=== PATIENT | female | born 2000 | race African-American/Black ===

== ENCOUNTER 2021-06-29 15:37 | Inpatient (IN) | payer MEDICAID, OTHER ==
[2021-06-29 17:04] LABS: Amphetamine Screen,Urine Not Detected (NotDetected); Barbiturate Screen,Urine Not Detected (NotDetected); Benzodiazepines Screen,Urine Not Detected (NotDetected); Cocaine Screen,Urine Not Detected (NotDetected); Methadone Screen, Urine Not Detected (NotDetected); Opiate Screen,Urine Not Detected (NotDetected); Oxycodone Screen, Urine Not Detected (NotDetected); Phencyclidine Screen,Urine Not Detected (NotDetected); Tricyclic Antidepressant,Urine Not Detected (NotDetected); Urn Cannabinoid Scrn Detected (NotDetected)
--- NOTE | 2021-06-29 17:31 | ED ---
General Adult HPI - General Chief complaint: Psychiatric Symptoms Stated complaint: Mental health Time Seen by Provider: 06/29/21 16:18 Source: patient Mode of arrival: ambulatory Limitations: no limitations - History of Present Illness Initial comments: This 20-year-old female with a past medical history of anxiety and depression presents emergency Department with increased depression over the last couple weeks. Patient states she has a lot of increased stress at home and states it has been increasing her anxiety and depression. Patient states she had suicidal thoughts the states she has no plan at this time. Patient states she did try to commit suicide 2 months ago by taking pills but states she doesn't think she would actually be able to follow-through with the plan. Patient states she was admitted to psychiatric hospital when she was 8 years old but has not been admitted to an inpatient Center since. Patient states she does not have a psychiatrist and states she would like to be able to get information on how to see a psychiatrist and therapist outpatient. Mother in room states she feels comfortable taking patient home and states she would like patient to be seen as an outpatient by a psychiatrist. Patient recently switched from seeing her net front end developer and now sees Dr. Redding. Patient states she is currently taking Citalopram which she has been on for years. Patient states she was diagnosed with anxiety and depression as a child. Patient denies any chest pain, shortness of breath, abdominal pain, nausea, vomiting, headache, lightheadedness, dizziness, change in bowel or bladder, change in appetite or any medical issues besides feeling increased sadness and depression over the last couple of weeks. Patient states she does smoke marijuana daily but denies using any other drugs. Patient denies drinking alcohol at this time. She states she did used to drink alcohol a few times a week couple months ago, however she stopped doing that. Patient denies any auditory or visual hallucinations. - Related Data Home Medications Medication Instructions Recorded Confirmed Aviane 0.1-20 Mg-Mcg Tab 1 tab PO DAILY 06/29/21 06/29/21 Citalopram Hydrobromide [CeleXA] 40 mg PO DAILY 06/29/21 06/29/21 Glycopyrrolate 4 mg PO DAILY 06/29/21 06/29/21 Allergies Allergy/AdvReac Type Severity Reaction Status Date / Time No Known Allergies Allergy Verified 06/29/21 17:16 Review of Systems ROS Statement: Those systems with pertinent positive or pertinent negative responses have been documented in the HPI. ROS Other: All systems not noted in ROS Statement are negative. Past Medical History Past Medical History: No Reported History History of Any Multi-Drug Resistant Organisms: None Reported Past Surgical History: Back Surgery Past Psychological History: No Psychological Hx Reported Smoking Status: Never smoker Past Alcohol Use History: None Reported Past Drug Use History: Marijuana General Exam Limitations: no limitations General appearance: alert, in no apparent distress Head exam: Present: atraumatic, normocephalic, normal inspection Eye exam: Present: normal appearance, PERRL, EOMI. Absent: scleral icterus, conjunctival injection, periorbital swelling ENT exam: Present: normal exam, mucous membranes moist Neck exam: Present: normal inspection, full ROM. Absent: tenderness, meningismus, lymphadenopathy Respiratory exam: Present: normal lung sounds bilaterally. Absent: respiratory distress, wheezes, rales, rhonchi, stridor, chest wall tenderness Cardiovascular Exam: Present: regular rate, normal rhythm, normal heart sounds. Absent: systolic murmur, diastolic murmur, rubs, gallop, clicks GI/Abdominal exam: Present: soft, normal bowel sounds. Absent: distended, tenderness, guarding, rebound, rigid Extremities exam: Present: normal inspection, full ROM, normal capillary refill. Absent: tenderness, pedal edema, joint swelling, calf tenderness Back exam: Present: normal inspection, full ROM. Absent: CVA tenderness (R), CVA tenderness (L), paraspinal tenderness, vertebral tenderness Neurological exam: Present: alert, oriented X3, CN II-XII intact, normal gait Psychiatric exam: Present: normal affect, normal mood Skin exam: Present: warm, dry, intact, normal color. Absent: rash Course Vital Signs 06/29/21 15:42 Temperature 98 F Pulse Rate 90 Respiratory 16 Rate Blood Pressure 105/65 O2 Sat by Pulse 97 Oximetry Medical Decision Making - Medical Decision Making This 20-year-old male presents emergency Department with increased depression and suicidal ideation 2 months, worsening over the last couple of days. EPS it assessed patient and did advise patient to be admitted for further psychiatric workup, evaluation and treatment. Patient verbally agreed to be admitted for further psychiatric evaluation, workup and treatment. Labs with urine hCG not detected, toxicology with urine detected. COVID-19 negative. Patient admitted to psychiatric unit. - Lab Data Lab Results 06/29/21 06/29/21 06/29/21 Range/Units 16:35 16:35 19:33 Urine HCG, Qual Not Detected (Not Detectd) Urine Opiates Screen Not Detected (NotDetected) Ur Oxycodone Screen Not Detected (NotDetected) Urine Methadone Screen Not Detected (NotDetected) Ur Propoxyphene Screen Not Detected (NotDetected) Ur Barbiturates Screen Not Detected (NotDetected) U Tricyclic Antidepress Not Detected (NotDetected) Ur Phencyclidine Scrn Not Detected (NotDetected) Ur Amphetamines Screen Not Detected (NotDetected) U Methamphetamines Scrn Not Detected (NotDetected) U Benzodiazepines Scrn Not Detected (NotDetected) Urine Cocaine Screen Not Detected (NotDetected) U Marijuana (THC) Screen Detected H (NotDetected) Coronavirus (PCR) Not Detected (Not Detectd) Disposition Clinical Impression: Depression with anxiety, Encounter for psychiatric assessment Disposition: ADMITTED IP TO THIS [facility] Condition: Serious Is patient prescribed a controlled substance at d/c from ED?: No Referrals: Anastasiia Garcia MD [Primary Care Provider] - 1-2 days
[2021-06-29] MEDS ORDERED: ACETAMINOPHEN TAB 325 MG TAB PO PRN (23:09)
[2021-06-29] MEDS ORDERED: MAGNESIUM HYDROXIDE 2,400 MG/10 ML CUP PO PRN (23:09)
[2021-06-29] MEDS ORDERED: MAG HYDROX/AL HYDROX/SIMETH 30 ML CUP PO PRN (23:09)
[2021-06-29] MEDS ORDERED: LORazepam 2 MG/ML INJ IM PRN (23:33)
[2021-06-30] MEDS: LORazepam 1 MG TAB PO PRN ×2 (01:40→08:39)
[2021-06-30 07:08] LABS: Basophils # (A) 0.1 k/uL (0-0.2); Basophils % (A) 1 %; Eosinophils # (A) 0.2 k/uL (0-0.7); Eosinophils % (A) 2 %; HGB 14.1 gm/dL (11.4-16.0); Lymphocytes # (A) 4.5 k/uL (1.0-4.8); Lymphocytes % (A) 42 %; MCHC 31.4 g/dL (31.0-37.0); MCV 92.3 fL (80.0-100.0); Mean Platelet Volume 7.5; Monocytes # (A) 0.5 k/uL (0-1.0); Monocytes % (A) 5 %; Neutrophils # (A) 5.2 k/uL (1.3-7.7); Neutrophils % (A) 49 %; Platelet Count 344 k/uL (150-450); RBC 4.87 m/uL (3.80-5.40); RDW 13.3 % (11.5-15.5); WBC 10.6 k/uL (4.0-11.0)
[2021-06-30 07:17] LABS: ALT 21 U/L (4-34); AST 31 U/L (14-36); African American GFR (CKD) >90 (>60 ml/min/1.73 sqM); Albumin 4.8 g/dL (3.5-5.0); Alkaline Phosphatase 88 U/L (38-126); Anion Gap 11 mmol/L; Blood Urea Nitrogen 10 mg/dL (7-17); Calcium 9.6 mg/dL (8.4-10.2); Carbon Dioxide 28 mmol/L (22-30); Chloride 101 mmol/L (98-107); Glucose 93 mg/dL (74-99); Non-African American GFR(CKD) >90 (>60 ml/min/1.73 sqM); Potassium 4.5 mmol/L (3.5-5.1); Sodium 140 mmol/L (137-145); Total Bilirubin 0.8 mg/dL (0.2-1.3); Total Protein 8.3 g/dL (6.3-8.2)
[2021-06-30] MEDS: CITALOPRAM HYDROBROMIDE 20 MG TAB PO SCH (08:39)
[2021-06-30] MEDS: GLYCOPYRROLATE 1 MG TAB PO SCH (08:41)
[2021-06-30] MEDS ORDERED: ARIPiprazole 5 MG TAB PO STA (10:24)
[2021-06-30 10:27] LABS: Chol/HDL Ratio 4.48 Ratio; LDL Cholesterol,Calculated 159.8 mg/dL (0.0-131.0)
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
--- NOTE | 2021-06-30 15:52 | P.CON ---
Consult Note - . Consult date: 06/30/21 Assessment/Plan:: This is a 20 year old female who presents to the emergency room reporting increased depression and sadness over the last couple. She describes this as a mental breakdown. Patient does have a history of attempted suicide attempt about 1 month ago and reports taking "some pills" but was not enough, she states she did not seek medical attention for this incident. She is currently denying suicidal or homicidal ideations. She is having some increased anxiety about this inpatient stay but states the ativan is helping. Patient has a past medical history of anxiety depression, reports that she was admitted to a psychiatric hospital at the age of 8 and has not been inpatient since, also reports elevated heart rate, and states that this is normal for her. Patient currently does not follow with a psychiatrist outpatient. Current medications include citalopram which she has been on for the last 2 years, follows with Dr Garcia in the primary care office newly established. Patient denies chest pain, shortness of breath, nausea, vomiting, diarrhea, headache, denies any dysuria, and reports no pain. She lives with her boyfriend of 2 years and his dad, when asked if she feels safe in the house and with boyfriend, she states, "yes," with no further elaboration. When asked about her family she does say she has a good relationship with her mom and also she has a good relationship with her 4 siblings. She currently works as a cook. She denies current alcohol use, states she occasionally vapes tobacco, also reports to smoking marijuana daily in the form of a joint. Current diagnostics include unremarkable blood count panel, unremarkable chemistry panel with exception of total protein 8.3 which is high. TSH 1.750 Urine hCG negative, urine drug toxicology positive for marijuana, COVID not detected. Patient is currently afebrile, heart rate in the 90s, blood pressure 129/60, 98% on room air. REVIEW OF SYSTEMS: CONSTITUTIONAL: No fever, no malaise, no fatigue. Reports increased depression a nd anxiety. HEENT: No recent visual problems or hearing problems. Denied any sore throat. CARDIOVASCULAR: No chest pain, orthopnea, PND, no palpitations, no syncope. PULMONARY: No shortness of breath, no cough, no hemoptysis. GASTROINTESTINAL: No diarrhea, no nausea, no vomiting, no abdominal pain. NEUROLOGICAL: No headaches, no weakness, no numbness. HEMATOLOGICAL: Denies any bleeding or petechiae. GENITOURINARY: Denies any burning micturition, frequency, or urgency. MUSCULOSKELETAL/RHEUMATOLOGICAL: Denies any joint pain, swelling, or any muscle pain. ENDOCRINE: Denies any polyuria or polydipsia. The rest of the 14-point review of systems is negative. PHYSICAL EXAMINATION: GENERAL: The patient is alert and oriented x3, not in any acute distress. Well developed, well nourished. HEENT: Pupils are round and equally reacting to light. EOMI. No scleral icterus. No conjunctival pallor. Normocephalic, atraumatic. No pharyngeal erythema. No thyromegaly. CARDIOVASCULAR: S1 and S2 present. No murmurs, rubs, or gallops. PULMONARY: Chest is clear to auscultation, no wheezing or crackles. ABDOMEN: Soft, nontender, nondistended, normoactive bowel sounds. No palpable organomegaly. MUSCULOSKELETAL: No joint swelling or deformity. EXTREMITIES: No cyanosis, clubbing, or pedal edema. NEUROLOGICAL: Gross neurological examination did not reveal any focal deficits. SKIN: No rashes. Assessment and plan Assessment Major depressive disorder with suicidal ideation Anxiety Sinus Tachycardia most likely related to anxiety, heart rate between 110-93 on assessment. Hyperlipidemia Daily marijuana use Occasional tobacco use GI prophylaxis Full Code Plan Evaluation and psychiatric medications per primary EKG for evaluation of tachycardia Labs reviewed Recommend diet modification and follow up lipid panel outpatient with primary care Follow up primary care on discharge Thank you kindly for this consultation. The impression and plan of care has been dictated by Katrina Mireles Nurse Practitioner as directed. Dr. Timothy MD I have performed a history and physical examination and medical decision making of this patient, discussed the same with the dictator, and agree with the dictators assessment and plan as written, documented as a scribe. Based on total visit time, I have performed more than 50% of this visit.
[2021-06-30] MEDS ORDERED: ONDANSETRON ODT 4 MG TAB PO PRN (16:12)
[2021-06-30] MEDS: traZODone HCL 50 MG TAB PO PRN (20:42)
[2021-07-01 07:04] VITALS: RESP 16
[2021-07-01] MEDS ORDERED: ARIPiprazole 5 MG TAB PO SCH (09:00)
--- NOTE | 2021-07-01 11:34 | P.PN ---
Progress Note - Text Progress Note Date: 07/01/21 Interval History: Patient was seen wandering the hallways and was directable and agreeable to speak with food writer in the office. Patient reports that she is feeling significantly better. She is currently denying any suicidal or homicidal ideation, intention, and/or plan. She is not reporting any auditory or visual hallucinations. She is denying any paranoia or other delusions. The patient was on trying to identify her thoughts and emotions. She reports that she has been speaking with her mother over the phone and feels better. She has been adherent with her medications and is not reporting any significant side effects at this time. She denies any issues regarding her sleep or appetite. Mental Status Exam: General Appearance: Patient appears to be stated age is alert, directable, and cooperative. Behavior: Patient is calmly seated without any agitated behavior. Eye contact is appropriate. Speech: Patient's speech is fluent and nonpressured. Mood/Affect: Mood is improving mildly, affect is congruent and constricted. Suicidality/Homicidality: Patient denies having any suicidal or homicidal ideation intent or plan. Perceptions: Patient denies any visual hallucinations and denies any auditory hallucinations Though content/process: There is no evidence of any delusional thought content and thought process is linear and goal-directed. Memory and concentration: AOX3, grossly intact for the purposes of this session Judgment and insight: Improving mildly Vital Signs Temp 97.7 F 07/01/21 06:43 Pulse 106 H 07/01/21 06:43 Resp 16 07/01/21 06:43 BP 134/63 07/01/21 06:43 Pulse Ox 98 06/30/21 15:59 Assessment Major depressive disorder Cluster B personality disorder Cannabis use disorder Rule out PTSD Plan: -Patient continues to meet criteria for inpatient psychiatric admission for symptom stabilization and safety. Patient has signed adult voluntary form and medication consent and was placed in patient's chart. -Medications: Continue citalopram 40 mg by mouth daily for depression/PTSD Increase Abilify to 10 mg by mouth daily for mood augmentation/impulsivity -When necessary Ativan for agitation/aggression. -SW on board for discharge planning. Encouraged the patient to participate in milieu.
[2021-07-01] MEDS: GLYCOPYRROLATE 1 MG TAB PO SCH (14:08)
[2021-07-01] MEDS: CITALOPRAM HYDROBROMIDE 20 MG TAB PO SCH (14:09)
[2021-07-01] MEDS: traZODone HCL 50 MG TAB PO PRN (20:36)
[2021-07-02 06:53] VITALS: BP 119/55; PULSE 79; TEMP 97.8
[2021-07-02] MEDS: GLYCOPYRROLATE 1 MG TAB PO SCH (07:06)
[2021-07-02] MEDS: CITALOPRAM HYDROBROMIDE 20 MG TAB PO SCH (07:06)
[2021-07-02] MEDS ORDERED: ARIPiprazole 10 MG TAB PO SCH (09:00)
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
== END 2021-07-02 12:00 | disposition home or self-care (01) | DRG 881 ==
LOC: EC 15:37 → 3MHU 22:38
PROVIDERS: ADMIT Psychiatry & Neurology Psychiatry; ATTEND Psychiatry & Neurology Psychiatry
DX: F32.9 Major depressive disorder, single episode, unspecified (principal); R45.851 Suicidal ideations; E78.5 Hyperlipidemia, unspecified; F12.10 Cannabis abuse, uncomplicated; F41.8 Other specified anxiety disorders; F43.10 Post-traumatic stress disorder, unspecified; F60.89 Other specific personality disorders; F90.9 Attention-deficit hyperactivity disorder, unspecified type; G47.00 Insomnia, unspecified; Z20.822 Contact with and (suspected) exposure to COVID-19; Z79.899 Other long term (current) drug therapy; Z81.1 Family history of alcohol abuse and dependence; Z81.8 Family history of other mental and behavioral disorders; Z91.410 Personal history of adult physical and sexual abuse
CPT/HCPCS: 80053; 80061; 80306; 81025; 82075; 83036; 84443; 85025; 87635; 93005; 99285

== ENCOUNTER → 2023-03-23 | Outpatient (CLI) | payer OTHER ==
--- NOTE | 2023-03-24 10:14 | MR ---
EXAMINATION TYPE: MR ximena/ellyn wo con DATE OF EXAM: 03/23/2023 9:25 PM CLINICAL INDICATION:Female, 22 years old with history of M54.50, M54.6; PHH, Mid and low back pain, e xtreme right leg pain, spasms, numbness and tingling. History of surgery 10+ years ago. COMPARISON: 06/04/2010. TECHNIQUE: Multi planar, multi sequence imaging was performed utilizing: T1-weighted, T2-weighted, a nd turbo inversion recovery imaging of the thoracic and lumbar spine. IV Contrast: cc . None. FINDINGS: Extensive postsurgical changes extending from upper thoracic spine to the L3 vertebrae.. Evaluation i s limited due to susceptibility artifact. Where visualized is no evidence for significant spinal odilon l stenosis within the thoracic spine. The neural foramen are also poorly visualized liver visualized the neural foramen appear patent. The L1-S1 levels of the spine don't show no evidence for significan t stenosis of the spinal canal or neural foramen. No evidence for disc herniation. There is mild disc desiccation. There is postsurgical alignment. Cord signal are visualized within normal limits. No ot her finding within the abdomen or pelvis or thorax. Transitional vertebrae at L5 noted bilaterally. T he right neural foramen where visualized are patent. IMPRESSION: Extensive surgical changes throughout the spine from the upper thoracic to the L3 vertebrae which bar its evaluation. The visualized spinal canal neural foramen appear patent. No abnormal bony signal def initively visualized. The lumbar spine is limits without evidence for significant spinal canal or crystal ral foraminal stenosis.
== END | disposition home or self-care (01) ==
LOC: RADMRIMAIN 20:00
PROVIDERS: ATTEND Orthopaedic Surgery
DX: M54.50 Low back pain, unspecified (principal); M54.6 Pain in thoracic spine
CPT/HCPCS: 72146; 72148

== ENCOUNTER → 2024-07-19 | Outpatient (CLI) | payer OTHER ==
--- NOTE | 2024-07-19 17:11 | US ---
EXAMINATION TYPE: US pelvic complete DATE OF EXAM: 07/19/2024 COMPARISON: NONE CLINICAL INDICATION: Female, 24 years old with history of N91.2 AMENORRHEA; checking for symptoms of PCOS TECHNIQUE: Transabdominal (TA). Transabdominal grayscale sonographic images of the pelvis were acquired. Transvaginal sonographic im ages were medically necessary to better assess the following anatomy: Doppler imaging: Color Doppler Images were obtained. FINDINGS: Date of LMP: pt is unsure of exact date of last period, pt thinks possibly approx 2 months ago EXAM MEASUREMENTS: Uterus: 6.7x3.9x4.0 cm Endometrial Stripe: 0.9 cm Right Ovary: 1.8x4.2x2.1 cm Left Ovary: 1.5x3.6x1.4 cm slightly limited exam due to overlying bowel 1. Uterus: Anteverted wnl 2. Endometrium: wnl 3. Right Ovary: ?anechoic area seen: 1.2x3.2x1.2cm 4. Left Ovary: slightly obscured, wnl as best visualized 5. Bilateral Adnexa: wnl 6. Posterior cul-de-sac: wnl IMPRESSION: Dominant follicle right ovary. Otherwise unremarkable study. O-RADS 2021 [email or web address] [facility], , 07/19/2024 5:09 PM
== END | disposition home or self-care (01) ==
LOC: RADUSWWP 15:44
PROVIDERS: ATTEND Internal Medicine Geriatric Medicine
DX: N91.2 Amenorrhea, unspecified (principal)
CPT/HCPCS: 76856

== ENCOUNTER → 2024-09-12 | Outpatient (CLI) | payer OTHER ==
[2024-09-12 15:32] LABS: Estradiol 37.3 pg/mL
[2024-09-12 15:35] LABS: Luteinizing Hormone 7.2 mIU/mL; Prolactin 7.8 ng/mL (2.800-29.200)
== END | disposition home or self-care (01) ==
LOC: LABWHC1 09:41
PROVIDERS: ATTEND Physician Assistant
DX: N91.2 Amenorrhea, unspecified (principal); R73.9 Hyperglycemia, unspecified
CPT/HCPCS: 36415; 82670; 82947; 83002; 83036; 84146; 84403